=== PATIENT | male | born 1990 | race Caucasian/White ===

== ENCOUNTER 2023-10-10 09:53 | Emergency (ER) | payer SELFPAY ==
[2023-10-10] MEDS ORDERED: Ketorolac Tromethamine 30 MG (1 mL) VIAL ONE (10:21)
[2023-10-10] MEDS ORDERED: Ondansetron PF 4 MG/2 ML Vial ONE ×2 (10:35→15:56)
[2023-10-10 10:49] LABS: #Monocytes 0.5 10x3/uL (0.0-1.1); #Neutrophils 9.6 10x3/uL (1.5-8.4); %Basophils 0.4 % (0.0-2.0); %Eosinophils 0.1 % (0.0-6.0); %Lymphocytes 7.7 % (18.0-47.0); %Monocytes 4.9 % (0.0-10.0); %Neutrophils 86.6 % (40.0-75.0); Hematocrit 41.9 % (38.8-50.0); Hemoglobin 14.7 g/dL (13.5-17.5); Mean Corpuscular HGB CONC 35.1 g/dL (32.0-36.0); Mean Corpuscular Hemoglobin 29.6 pg (27.0-33.0); Mean Corpuscular Volume 84.3 fl (81.2-95.1); Mean Platelet Volume 9.4 fl (7.4-10.4); Platelet Count 249 10x3/uL (150-450); RBC Distribution Width 12.4 % (11.5-14.5); Red Blood Cell (RBC) Count 4.97 10x6/uL (4.32-5.72); White Blood Cell (WBC) Count 11.1 10x3/uL (3.5-10.5)
[2023-10-10 11:06] LABS: ALT (SGPT) 8 U/L (8-55); AST (SGOT) 14 U/L (5-34); Alkaline Phosphatase 74 U/L (40-110); Anion Gap 15 mmol/L (10-20); BUN (Urea Nitrogen) 9 mg/dL (8.9-20.6); Bilirubin, Total 1.2 mg/dL (0.2-1.2); Calc. Creatinine Clearance 0 mL/min (70-130); Calcium 8.5 mg/dL (7.8-10.44); Carbon Dioxide 23 mmol/L (22-29); Chloride 105 mmol/L (98-107); Estimated GFR 118; Globulin 2.2 g/dL (2.4-3.5); Glucose 128 mg/dL (70-105); Lipase 23 U/L (8-78); Potassium 3.4 mmol/L (3.5-5.1); Protein, Total 6.2 g/dL (6.0-8.3); Sodium 140 mmol/L (136-145)
[2023-10-10 12:05] LABS: Bilirubin Neg (Negative); Blood, Urine 250 (Negative); Clarity Cloudy (Clear); Glucose, Urine (Dipstick) Normal (Negative); Ketone, Urine 50 mg/dL (Negative); Leukocyte 25 (Negative); Nitrite Positive (Negative); Protein, Urine (Dipstick) 100 mg/dl (Neg-Trace); Specific Gravity, Urine 1.025 (1.005-1.030)
[2023-10-10 12:43] LABS: Bacteria/HPF 2+ HPF (None Seen); CAUTI Indications for Culture Pelvic or flank pain; RBC/HPF Greater than 50 HPF (0-3); Squamous Epithelial None Seen HPF (0-3)
[2023-10-10 12:45] LABS: Urine Culture Reflex No No
[2023-10-10] MEDS ORDERED: cefTRIAXone (ROCEPHIN) 2 GM VIAL ONE (12:54)
[2023-10-10 14:24] LABS: Bilirubin Neg (Negative); Blood, Urine 250 (Negative); Clarity Cloudy (Clear); Glucose, Urine (Dipstick) Normal (Negative); Ketone, Urine 50 mg/dL (Negative); Leukocyte 25 (Negative); Nitrite Negative (Negative); Protein, Urine (Dipstick) 100 mg/dl (Neg-Trace); Urobilinogen Normal mg/dL (Less than 2)
[2023-10-10 14:44] LABS: RBC/HPF Greater than 50 HPF (0-3)
[2023-10-10 14:45] LABS: Bacteria/HPF 2+ HPF (None Seen); CAUTI Indications for Culture Pelvic or flank pain; Squamous Epithelial 0-3 HPF (0-3); Transitional Epithelial 0-3 HPF (None Seen)
[2023-10-10 14:46] LABS: Urine Culture Reflex No No
[2023-10-10] MEDS ORDERED: Iopamidol 30 ML ONE (15:39)
[2023-10-10] MEDS ORDERED: Famotidine/PF 20 mg/2ml Vial ONE (15:55)
[2023-10-10] MEDS ORDERED: PROPOFOL 20 ML ONE (15:56)
[2023-10-10] MEDS ORDERED: Dexamethasone 4 mg/ml Vial ONE (15:56)
[2023-10-10] MEDS ORDERED: fentaNYL 50 mcg/mL 1 mL Vial ONE (15:56)
[2023-10-10] MEDS ORDERED: Metoclopramide HCl 10 MG (2 mL) VIAL ONE (15:56)
[2023-10-10] MEDS ORDERED: Rocuronium Bromide 10 MG/ML (10ML VIAL) ONE ×2 (15:56→16:15)
[2023-10-10] MEDS ORDERED: Succinylcholine 200 MG/10 ml SYRINGE FS ONE (15:57)
[2023-10-10] MEDS ORDERED: Lidocaine 2% PF 5 ML VIAL ONE (15:57)
[2023-10-10] MEDS ORDERED: Glycopyrrolate 0.2 MG/ML 5 ML SYRINGE ONE (16:37)
[2023-10-10 17:29] LABS: Bilirubin Neg (Negative); Blood, Urine 250 (Negative); Clarity Cloudy (Clear); Glucose, Urine (Dipstick) Normal (Negative); Ketone, Urine 150 mg/dL (Negative); Leukocyte Negative (Negative); Nitrite Negative (Negative); Protein, Urine (Dipstick) 30 mg/dl (Neg-Trace); Urobilinogen Normal mg/dL (Less than 2)
== END 2023-10-10 16:08 | disposition admitted as inpatient to this hospital (09) ==
LOC: CSHERS 09:53
DX: N13.2 Hydronephrosis with renal and ureteral calculous obstruction (principal)
CPT/HCPCS: 36415; 74018; 74176; 80053; 81001; 83690; 85025; 87086; 96374; 96375; C1769; C2617; J0696; J1100; J1885; J2001; J2405; J2704; J2765; J3010; Q9967; S0028